=== PATIENT | male | born 1955 | race Caucasian/White ===

== ENCOUNTER 2017-06-02 18:04 | Emergency (ER) | payer OTHER ==
[2017-06-02 18:09] VITALS: RESP 16; TEMP 98.4
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
[2017-06-02] MEDS ORDERED: HYDROCOD/APAP 5/325 PREPACK#6 BTL TAKEHOME ONE (20:15)
[2017-06-02] MEDS ORDERED: HYDROCODONE/APAP 5/325 TAB PO ONE (20:15)
[2017-06-02] MEDS ORDERED: IBUPROFEN 200 MG TAB PO ONE (20:15)
[2017-06-02 20:41] VITALS: BP 121/72; PULSE 78; O2SAT 96
== END 2017-06-02 20:41 | disposition home or self-care (01) ==
DX: S42.025A Nondisplaced fracture of shaft of left clavicle, initial encounter for closed fracture (principal); S22.32XA Fracture of one rib, left side, initial encounter for closed fracture; S09.90XA Unspecified injury of head, initial encounter; W11.XXXA Fall on and from ladder, initial encounter

== ENCOUNTER → 2018-01-10 | Outpatient (CLI) | payer OTHER | LOC: FIMAGING 08:46 | PROVIDERS: ATTEND Internal Medicine Rheumatology | DX: M19.031 Primary osteoarthritis, right wrist (principal); M19.032 Primary osteoarthritis, left wrist ==

== ENCOUNTER 2018-04-08 19:11 | Emergency (ER) | payer OTHER ==
[2018-04-08] MEDS ORDERED: HYDROmorphONE/DILAUDID 2 MG/ML INJ IVP ONE (19:25)
[2018-04-08] MEDS ORDERED: NS 1,000 ML IV ONE (19:25)
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
[2018-04-08] MEDS ORDERED: HYDROmorphONE/DILAUDID 1 MG/ML INJ ONE ×2 (19:32→19:36)
[2018-04-08 20:59] VITALS: BP 109/72
== END 2018-04-08 20:58 | disposition home or self-care (01) ==
DX: S42.034A Nondisplaced fracture of lateral end of right clavicle, initial encounter for closed fracture (principal); S22.41XA Multiple fractures of ribs, right side, initial encounter for closed fracture; E86.9 Volume depletion, unspecified; V18.0XXA Pedal cycle driver injured in noncollision transport accident in nontraffic accident, initial encounter; Y99.8 Other external cause status; Y93.55 Activity, bike riding
CPT/HCPCS: 96374; A4565; J1170